=== PATIENT | female | born 1965 | race Caucasian/White ===

== ENCOUNTER 2018-04-08 13:54 | Inpatient (IN) | payer OTHER ==
[2018-04-08 16:00] LABS: ADD MAN DIFF? NO
[2018-04-08 16:01] LABS: BASOPHILS % 0.2 % (0.0-2.0); EOSINOPHILS # 0.5 10^3/ul (0.0-0.5); EOSINOPHILS % 6.6 % (0.0-7.0); HEMATOCRIT 27.5 % (37.0-47.0); HEMOGLOBIN 8.9 g/dl (12.0-16.0); LYMPHOCYTES # 0.8 10^3/ul (0.8-2.9); LYMPHOCYTES % 10.5 % (15.0-51.0); MEAN CORPUSCULAR HEMOGLOBIN 29.7 pg (29.0-33.0); MEAN CORPUSCULAR HGB CONC 32.4 g/dl (32.0-37.0); MEAN CORPUSCULAR VOLUME 91.7 fl (82.0-101.0); MEAN PLATELET VOLUME 9.4 fl (7.4-10.4); MONOCYTE # 0.8 10^3/ul (0.3-0.9); MONOCYTES % 9.6 % (0.0-11.0); NEUTROPHIL # 5.8 10^3/ul (1.6-7.5); NEUTROPHILS % 72.5 % (39.0-77.0); PLATELET COUNT 388 10^3/UL (140-415); RED CELL DISTRIBUTION WIDTH 14.2 % (11.5-14.5)
[2018-04-08 16:04] LABS: INR 1.47; PROTIME 18.1 Sec (11.9-14.9); PT RATIO 1.4
[2018-04-08 16:05] LABS: PARTIAL THROMBOPLASTIN TIME 46.6 Sec (25.0-35.0)
[2018-04-08] MEDS: SOD CHLORIDE 0.9% 1,000 ML IV (16:07)
[2018-04-08] MEDS: APIXABAN 5 MG TABLET PO (16:09)
[2018-04-08 16:10] LABS: ALANINE AMINOTRANSFERASE 30 IU/L (13-69); ALBUMIN 3.4 g/dl (3.3-4.9); ALBUMIN/GLOBULIN RATIO 1.25; ALKALINE PHOSPHATASE 67 IU/L (42-121); ANION GAP 12 (8-16); ASPARTATE AMINO TRANSFERASE 22 IU/L (15-46); BILIRUBIN,INDIRECT 0.3 mg/dl (0-1.1); BILIRUBIN,TOTAL 0.3 mg/dl (0.2-1.3); BLOOD UREA NITROGEN 12 mg/dl (7-20); CALCIUM 8.8 mg/dl (8.4-10.2); CARBON DIOXIDE 30 mmol/L (21-31); CHLORIDE 105 mmol/L (97-110); CREATININE 0.43 mg/dl (0.44-1.00); GLUCOSE 140 mg/dl (70-220); LIPASE 49 U/L (23-300); POTASSIUM 3.7 mmol/L (3.5-5.1); SODIUM 143 mmol/L (135-144); TOTAL PROTEIN 6.1 g/dl (6.1-8.1)
[2018-04-08] MEDS: HYDROCODONE/APAP (5/325) TAB PO ×2 (16:11→22:14)
[2018-04-08] MEDS ORDERED: DOCUSATE SODIUM 100 MG CAP PO (17:30)
[2018-04-08] MEDS ORDERED: HYDROCODONE/APAP (5/325) TAB PO (17:30)
[2018-04-08] MEDS ORDERED: NACL 0.9% 3 ML SYG IV (17:30)
[2018-04-08] MEDS ORDERED: ACETAMINOPHEN 325 MG TAB PO (17:30)
[2018-04-08] MEDS ORDERED: ONDANSETRON 4 MG INJ IV ×2 (17:30)
[2018-04-08] MEDS: GABAPENTIN 300 MG CAP PO (22:15)
[2018-04-09 05:49] LABS: ADD MAN DIFF? NO
[2018-04-09 06:04] LABS: WHITE BLOOD COUNT 6.7 10^3/ul (4.8-10.8)
[2018-04-09 06:04] LABS: BASOPHILS % 0.5 % (0.0-2.0); EOSINOPHILS # 0.5 10^3/ul (0.0-0.5); EOSINOPHILS % 7.5 % (0.0-7.0); HEMATOCRIT 24.4 % (37.0-47.0); HEMOGLOBIN 7.8 g/dl (12.0-16.0); LYMPHOCYTES # 0.9 10^3/ul (0.8-2.9); LYMPHOCYTES % 13.4 % (15.0-51.0); MEAN CORPUSCULAR HEMOGLOBIN 29.2 pg (29.0-33.0); MEAN CORPUSCULAR VOLUME 91.4 fl (82.0-101.0); MEAN PLATELET VOLUME 9.2 fl (7.4-10.4); MONOCYTE # 0.7 10^3/ul (0.3-0.9); MONOCYTES % 9.9 % (0.0-11.0); NEUTROPHIL # 4.5 10^3/ul (1.6-7.5); NEUTROPHILS % 67.8 % (39.0-77.0); PLATELET COUNT 343 10^3/UL (140-415); RED BLOOD COUNT 2.67 10^6/ul (4.20-5.40); RED CELL DISTRIBUTION WIDTH 14.4 % (11.5-14.5)
[2018-04-09 06:40] LABS: ANION GAP 11 (8-16); BLOOD UREA NITROGEN 12 mg/dl (7-20); CALCIUM 8.8 mg/dl (8.4-10.2); CARBON DIOXIDE 29 mmol/L (21-31); CHLORIDE 106 mmol/L (97-110); CREATININE 0.49 mg/dl (0.44-1.00); GLUCOSE 95 mg/dl (70-220); POTASSIUM 3.8 mmol/L (3.5-5.1); SODIUM 142 mmol/L (135-144)
[2018-04-09] MEDS: GABAPENTIN 300 MG CAP PO ×2 (08:43→11:53)
[2018-04-09] MEDS: FUROSEMIDE 20 MG TAB PO (08:44)
[2018-04-09] MEDS ORDERED: ENOXAPARIN 80 MG/0.8 ML SYG SC (09:00)
[2018-04-09] MEDS: RIVAROXABAN 20 MG TABLET PO (10:01)
[2018-04-09] MEDS: HYDROCODONE/APAP (5/325) TAB PO (10:03)
== END 2018-04-09 13:55 | disposition home or self-care (01) | DRG 556 ==
LOC: PP2 04-09 01:21 → E/R 13:54 → PP2 17:09
DX: M79.89 Other specified soft tissue disorders (principal); C79.89 Secondary malignant neoplasm of other specified sites; Z86.718 Personal history of other venous thrombosis and embolism; Z79.02 Long term (current) use of antithrombotics/antiplatelets; Z90.710 Acquired absence of both cervix and uterus
CPT/HCPCS: 36415; 80048; 80053; 83690; 85025; 85610; 85730; 93005; 93971; 99285-25

== ENCOUNTER 2018-04-26 10:28 | Emergency (ER) | payer OTHER ==
[2018-04-26] MEDS: HYDROmorphONE 1 MG/ML SYG IV (12:13)
[2018-04-26] MEDS: SOD CHLORIDE 0.9% 1,000 ML IV (12:14)
[2018-04-26] MEDS: ONDANSETRON 4 MG INJ IV (12:14)
[2018-04-26 12:20] LABS: WHITE BLOOD COUNT 8.4 10^3/ul (4.8-10.8)
[2018-04-26 12:20] LABS: ADD MAN DIFF? NO; BASOPHILS % 0.4 % (0.0-2.0); EOSINOPHILS # 0.3 10^3/ul (0.0-0.5); EOSINOPHILS % 3.5 % (0.0-7.0); HEMATOCRIT 33.8 % (37.0-47.0); HEMOGLOBIN 10.5 g/dl (12.0-16.0); LYMPHOCYTES # 0.8 10^3/ul (0.8-2.9); LYMPHOCYTES % 9.4 % (15.0-51.0); MEAN CORPUSCULAR HEMOGLOBIN 27.4 pg (29.0-33.0); MEAN CORPUSCULAR HGB CONC 31.1 g/dl (32.0-37.0); MEAN CORPUSCULAR VOLUME 88.3 fl (82.0-101.0); MEAN PLATELET VOLUME 9.3 fl (7.4-10.4); MONOCYTE # 0.8 10^3/ul (0.3-0.9); MONOCYTES % 9.6 % (0.0-11.0); NEUTROPHIL # 6.4 10^3/ul (1.6-7.5); NEUTROPHILS % 76.5 % (39.0-77.0); PLATELET COUNT 387 10^3/UL (140-415); RED BLOOD COUNT 3.83 10^6/ul (4.20-5.40); RED CELL DISTRIBUTION WIDTH 14.6 % (11.5-14.5)
[2018-04-26 12:26] LABS: LACTIC ACID 1.7 mmol/L (0.5-2.0)
[2018-04-26 12:29] LABS: INR 2.31; PARTIAL THROMBOPLASTIN TIME 46.4 Sec (25.0-35.0)
[2018-04-26 12:30] LABS: ALBUMIN/GLOBULIN RATIO 1.42; ALKALINE PHOSPHATASE 81 IU/L (42-121); AMYLASE 59 U/L (11-123); ANION GAP 10 (8-16); ASPARTATE AMINO TRANSFERASE 27 IU/L (15-46); BILIRUBIN,INDIRECT 0.2 mg/dl (0-1.1); BILIRUBIN,TOTAL 0.2 mg/dl (0.2-1.3); BLOOD UREA NITROGEN 18 mg/dl (7-20); CALCIUM 9.3 mg/dl (8.4-10.2); CARBON DIOXIDE 27 mmol/L (21-31); CHLORIDE 106 mmol/L (97-110); CREATINE KINASE 56 IU/L (23-200); CREATININE 0.46 mg/dl (0.44-1.00); GLUCOSE 105 mg/dl (70-220); LIPASE 78 U/L (23-300); POTASSIUM 3.9 mmol/L (3.5-5.1); SODIUM 139 mmol/L (135-144); TOTAL PROTEIN 6.8 g/dl (6.1-8.1)
[2018-04-26 12:42] LABS: CK INDEX 0.7; TROPONIN-I < 0.012 ng/ml (0.000-0.120)
[2018-04-26 12:52] LABS: ALANINE AMINOTRANSFERASE 34 IU/L (13-69)
[2018-04-26] MEDS ORDERED: ACETAMINOPHEN 325 MG TAB PO (14:30)
[2018-04-26] MEDS ORDERED: ONDANSETRON 4 MG INJ IV (14:30)
[2018-04-26] MEDS: HYDROmorphONE 0.5 MG/0.5 ML SYG IV ×3 (14:54→22:07)
[2018-04-26 18:48] LABS: ADD UMIC YES; UR ASCORBIC ACID NEGATIVE (NEGATIVE); UR BACTERIA FEW /HPF (NONE SEEN); UR BILIRUBIN (Dip) NEGATIVE (NEGATIVE); UR BLOOD (Dip) 2+ mg/dL (NEGATIVE); UR CLARITY CLEAR (CLEAR); UR COLOR YELLOW (YELLOW); UR GLUCOSE (Dip) NEGATIVE (NEGATIVE); UR KETONES (Dip) NEGATIVE (NEGATIVE); UR LEUKOCYTE ESTERASE (Dip) 1+ Leu/ul (NEGATIVE); UR NITRITE (Dip) NEGATIVE (NEGATIVE); UR RBC 4 /HPF (0-5); UR SPECIFIC GRAVITY (Dip) 1.013 (1.003-1.030); UR SQUAMOUS EPITHELIAL CELL FEW /HPF (FEW); UR TOTAL PROTEIN (Dip) NEGATIVE (NEGATIVE); UR UROBILINOGEN (Dip) NEGATIVE (NEGATIVE); UR WBC 5 /HPF (0-5)
[2018-04-26 18:55] LABS: CREATINE KINASE 57 IU/L (23-200); LACTIC ACID 1.1 mmol/L (0.5-2.0)
== END 2018-04-26 22:15 | disposition short-term general hospital (02) ==
LOC: E/R 10:28
DX: S80.12XA Contusion of left lower leg, initial encounter (principal); I82.542 Chronic embolism and thrombosis of left tibial vein; M79.605 Pain in left leg; X58.XXXA Exposure to other specified factors, initial encounter; Y92.002 Bathroom of unspecified non-institutional (private) residence as the place of occurrence of the external cause; Z79.01 Long term (current) use of anticoagulants; Z85.831 Personal history of malignant neoplasm of soft tissue
CPT/HCPCS: 73718; 80053; 81001; 82150; 82550; 82553; 83605; 83690; 84484; 85025; 85610; 85730; 87040; 93005; 93926; 93971; 96374; 96375; 96376; 99291-25